=== PATIENT | female | born 1945 | race Caucasian/White ===

== ENCOUNTER 2025-04-07 21:41 | Emergency (ER) | payer OTHER ==
[2025-04-07 21:59] VITALS: BP 184/85; PULSE 69; RESP 16; TEMP 98.6; BMI 31.2
[2025-04-07 23:18] LABS: ABSOLUTE IMMATURE GRANULOCYTES 0.03 x10^3/uL (0.0-0.031); BASOPHILS # 0.02 x10^3/uL (0.01-0.08); EOSINOPHIL % 2.6 % (0.7-5.8); EOSINOPHILS # 0.19 x10^3/uL (0.04-0.36); MCHC 33.2 g/dl (32.2-35.5); MEAN CELL VOLUME 89.8 fl (79.4-94.8); MEAN PLT VOLUME 10.6 fl (9.4-12.3); MONOCYTE # 0.62 x10^3/uL (0.24-0.86); MONOCYTE % 8.6 % (4.7-12.5); RDW 12.2 % (12.4-16.6)
[2025-04-07 23:35] LABS: ALK PHOS 67.0 U/L (45-117); CO2 28.0 mmol/L (21-32); CREATININE 0.7 mg/dl (0.6-1.3); GLUCOSE,RANDOM 123.0 mg/dl (74-106); SGOT/AST 17.0 U/L (15-37); SGPT/ALT 19.0 U/L (7-52); TOT PROT 6.9 g/dl (6.4-8.2)
[2025-04-08 00:38] LABS: INR 1.08 (0.83-1.09); PROTHROMBIN TIME (PATIENT) 11.8 SEC (9.7-13.0)
== END 2025-04-08 01:07 | disposition left against medical advice (07) ==
LOC: FER 21:41
DX: G45.9 Transient cerebral ischemic attack, unspecified (principal); R41.3 Other amnesia
CPT/HCPCS: 36415; 70450-TC; 71045-TC-FY; 80053; 82550; 84484; 85025; 85610; 93005; 99285-25